=== PATIENT | male | born 1960 | race Hispanic/Latino ===

== ENCOUNTER → 2025-04-17 | Outpatient (CLI) | payer OTHER ==
--- NOTE | 2025-04-18 11:32 | HMCIMG ---
Scrotal ultrasound. CLINICAL INDICATION: Right groin pain rule out testicular abscess. FINDINGS: The right testicle measures 4.3 x 2.6 x 2.6 cm, and images of the testicle reveal normal uniform parenchymal echogenicity. No testicular masses are identified. The right epididymis is demonstrating normal echotexture. Doppler analysis reveals normal flow to the testicle and epididymis. There is a right epididymal cyst of the head measuring 0.6 cm. No abnormal extratesticular masses or collections are identified in the right hemiscrotum. The left testicle measures 3.6 x 2.3 x 2.0 cm, and images of the testicle reveal normal uniform parenchymal echogenicity. No testicular masses are identified. The left epididymis is demonstrating normal echotexture. Doppler analysis reveals normal flow to the testicle and epididymis. No abnormal extratesticular masses or collections are identified in the left hemiscrotum. There is no evidence of varicocele. IMPRESSION: Normal testicular sonogram with no evidence of testicular abscess.
--- NOTE | 2025-04-18 11:34 | HMCIMG ---
Inguinal ultrasound for right inguinal mass Clinical Information: Right quadrant pain Comparison: None Findings: The examination demonstrates no evidence of inguinal hernia with or without Valsalva maneuver. The right groin region. There is demonstrated a subcutaneous 0.7 x 0.4 x 0.9 cm hypoechoic echoic irregular with fat stranding suggesting of an inflammatory process.. No lymphadenopathy is identified. Impression: Right inguinal region in area of interest demonstrate a 0.7 x 0.4 x 0.9 hypoechoic irregular lesion with fat stranding suggesting of an inflammatory process i.e. a phlegmon
== END | disposition home or self-care (01) ==
LOC: RAH 15:14
PROVIDERS: ATTEND Internal Medicine
DX: N50.3 Cyst of epididymis (principal); N45.4 Abscess of epididymis or testis; R19.09 Other intra-abdominal and pelvic swelling, mass and lump
CPT/HCPCS: 76870; 76882